=== PATIENT | male | born 1990 | race African-American/Black ===

== ENCOUNTER 2017-08-31 04:20 | Emergency (ER) | payer SELFPAY ==
--- NOTE | 2017-08-31 04:28 | ER Report ---
History and Physical Time Seen By MD: 04:28 HPI/ROS CHIEF COMPLAINT: Asthma HISTORY OF PRESENT ILLNESS: 27-year-old male with asthma exacerbation duration 2 days and ran out of inhaler because by dust at work while working out on a oil [place]. He reports typical exacerbation. States he is from [place]. Reviewed home system they would like a refill of his inhaler. No fevers. No other triggers. No Other concerns or complaints today. REVIEW OF SYSTEMS: Constitutional: No fever, no chills. Eyes: No discharge. ENT: No sore throat. Cardiovascular: No chest pain, no palpitations. Respiratory: Otherwise negative Gastrointestinal: No abdominal pain, no vomiting. Genitourinary: No hematuria. Musculoskeletal: No back pain. Skin: No rashes. Neurological: No headache. Allergies: Coded Allergies: No Known Drug Allergies (Unverified , 08/31/17) Home Meds Reported Medications [inhaler] No Conflict Check 08/31/17 Constitutional Vital Sign - Last 24 Hours 08/31/17 04:25 Temp 98.5 Pulse 91 Resp 25 B/P (MAP) 142/77 Pulse Ox 86 O2 Delivery Room Air Physical Exam General Appearance: The patient is alert, has no immediate need for airway protection and no signs of toxicity. No Acute distress Eyes: Pupils equal and round no pallor or injection. ENT, Mouth: Mucous membranes are moist. Respiratory: Decreased air movement bilaterally, diffuse wheezing, mild accessory muscle use no rales or rhonchi Cardiovascular: Regular rate and rhythm. No murmurs gallops or rubs Gastrointestinal: Abdomen is soft and non tender, no masses, bowel sounds normal. Neurological: No Skin: Warm and dry, no rashes. Musculoskeletal: Neck is supple non tender. Extremities are nontender, nonswollen and have full range of motion. No edema DIFFERENTIAL DIAGNOSIS: After history and physical exam differential diagnosis was considered for asthma exacerbation triggers known no signs of pneumonia sepsis or other serious or dangerous process Medical Decision Making ED Course/Re-evaluation ED Course Sumi started in triage, I discussed risks and benefits of steroids and ongoing nebs. Appears to be typical asthma exacerbation initial sats 92% on room air Decision to Disposition Date: Aug 31, 2017 Decision to Disposition Time: 04:36 Depart Departure Latest Vital Signs Vital Signs Date Time Temp Pulse Resp B/P (MAP) Pulse Ox O2 Delivery O2 Flow Rate FiO2 08/31/17 04:25 98.5 91 25 142/77 86 Room Air Impression: Primary Impression: Asthma exacerbation Condition: Improved Disposition: HOME OR SELF-CARE New Scripts Albuterol Sulfate 90 Mcg/Act (PROAIR HFA 90 MCG/ACT) 8.5 Gm Hfa.aer.ad 1-2 PUFF IH 3-4XD for wheezing for 10 Days, #2 INHALER Use spacer as directed for better results Prov: YOVANY RHODES MD 08/31/17 Patient Instructions: Asthma (ED) Problem Qualifiers Primary Impression: Asthma exacerbation Asthma severity: moderate Asthma persistence: unspecified Qualified Codes: J45.901 - Unspecified asthma with (acute) exacerbation YOVANY RHODES MD Aug 31, 2017 04:28
[2017-08-31] MEDS ORDERED: inhaler (04:31)
[2017-08-31] MEDS ORDERED: methylPREDNIS ACE 40MG/ML VIAL IM ONLY ONE (04:35)
[2017-08-31] MEDS ORDERED: ALBUTEROL 2.5 MG/0.5ML ER ONLY NEB ONE ×2 (04:35→04:44)
[2017-08-31] MEDS ORDERED: ALBUTEROL/IPRATROPIUM 3 ML NEB NEB ONE (04:35)
[2017-08-31] MEDS ORDERED: ALBU8.5H IH (04:39)
[2017-08-31] MEDS ORDERED: ALBUTEROL 2.5 MG/3 ML NEB ONE (04:44)
[2017-08-31 05:00] VITALS: BP 145/86
== END 2017-08-31 05:16 | disposition home or self-care (01) ==
LOC: ER 04:59
DX: J45.901 Unspecified asthma with (acute) exacerbation (principal)
CPT/HCPCS: 94640; 96372; 99283; J1030; J7611; J7613; J7620